=== PATIENT | male | born 1980 | race Caucasian/White ===

== ENCOUNTER 2019-03-05 22:01 | Emergency (ER) | payer BC, OTHER ==
[~2019-03-05] VITALS: Ht 182.8 cm; Wt 63.0 kg
[2019-03-05] MEDS ORDERED: LACTATED RINGERS 1,000 ML IV ONE ×2 (22:21→22:24)
--- NOTE | 2019-03-05 22:28 | ED Psychosocial ---
General Chief Complaint: Overdose Stated Complaint: POSS DRUG OD Source: patient, other (acquaintances through the latter-day) Exam Limitations: clinical condition History of Present Illness Date Seen by Provider: Mar 05, 2019 Time Seen by Provider: 22:10 Initial Comments the patient presents to the ER by private conveyance from his home where some acquaintances who through a drug addiction treatment program as well as the latter-day were called by the patient's boss because he was acting bizarrely. The patient says that sometime this morning he got a bag of meth which she typically will smoke but today he just ate and snorted and was having a bad trip from it. He was told that there might be acid in it. He said everything was doing well until after he took all of the meth he then decided to chew on the bag and suck on it. He denies swallowing it. He says since then he's been very agitated he's had people coming in and out of the house and messing with him. He denies hernández llucinating anything in the room presently. He denies any previous medical history or surgical history. He denies any trauma to his abdominal cavity. He says he just feels like his guts are boiling and bubbling but he has not had a bowel movement in over a week which is unusual because he typically has one daily. He has not eaten or drank since yesterday. He denies any fevers or ch ills, nausea or vomiting. He denies taking any medications routinely. He says he feels very thirsty. He denies alcohol but he smokes cigarettes. He denies any suicidal or homicidal ideation. Allergies and Home Medications Allergies Coded Allergies: No Known Drug Allergies (Unverified , 03/05/19) Patient Home Medication List Home Medication List Reviewed: Yes Review of Systems Constitutional: No chills, No diaphoresis EENTM: No ear discharge, No ear pain Respiratory: No cough, No short of breath Cardiovascular: No chest pain, No edema Gastrointestinal: see HPI; No abdominal pain; constipation; No diarrhea, No nausea, No vomiting Genitourinary: decreased output; No discharge, No dysuria Musculoskeletal: No back pain, No joint pain Skin: No pruritus, No rash Psychiatric/Neurological: Denies Headache, Denies Numbness Past Sbzvguf-Cpyxgx-Jyvpvp Hx Patient Social History Alcohol Use: Denies Use Recreational Drug Use: Yes Drug of Choice: Meth, Acid Smoking Status: Current Everyday Smoker Type Used: Cigarettes Physical Exam Vital Signs - First Documented 03/05/19 22:25 Temp 36.4 Pulse 122 Resp 22 B/P (MAP) 134/93 (107) Capillary Refill : Height, Weight, BMI Height: '" Weight: lbs. oz. kg; BMI Method: General Appearance: WD/WN, mild distress HEENT: PERRL/EOMI, normal ENT inspection, pharynx normal Neck: full range of motion, supple, normal inspection Respiratory: lungs clear, normal breath sounds, no respiratory distress, no accessory muscle use Cardiovascular: normal peripheral pulses, regular rate, rhythm Gastrointestinal: normal bowel sounds, non tender, soft, no organomegaly, other (negative for tenderness over McBurney's point, Rovsing sign, psoas sign or other mesenteric signs.) Extremities: normal range of motion, non-tender, normal inspection, normal capillary refill Neurologic/Psychiatric: alert, normal mood/affect, oriented x 3 Appearance/Memory: no memory impairment, disheveled Behavior/Eye Contact: cooperative, good eye contact, normal speech Thoughts/Hallucinations: no apparent hallucination; No incoherent, No paranoid Skin: normal color, warm/dry Progress/Results/Core Measures Results/Orders Lab Results Laboratory Tests Test 03/05/19 22:30 03/06/19 01:02 03/06/19 01:27 Range/Units White Blood Count 9.9 4.3-11.0 10^3/uL Red Blood Count 5.21 4.35-5.85 10^6/uL Hemoglobin 16.7 13.3-17.7 G/DL Hematocrit 49 40-54 % Mean Corpuscular Volume 94 80-99 FL Mean Corpuscular Hemoglobin 32 25-34 PG Mean Corpuscular Hemoglobin Concent 34 32-36 G/DL Red Cell Distribution Width 12.2 10.0-14.5 % Platelet Count 212 130-400 10^3/uL Mean Platelet Volume 10.2 7.4-10.4 FL Neutrophils (%) (Auto) 70 42-75 % Lymphocytes (%) (Auto) 20 12-44 % Monocytes (%) (Auto) 9 0-12 % Eosinophils (%) (Auto) 0 0-10 % Basophils (%) (Auto) 1 0-10 % Neutrophils # (Auto) 6.9 1.8-7.8 X 10^3 Lymphocytes # (Auto) 1.9 1.0-4.0 X 10^3 Monocytes # (Auto) 0.8 0.0-1.0 X 10^3 Eosinophils # (Auto) 0.0 0.0-0.3 10^3/uL Basophils # (Auto) 0.1 0.0-0.1 10^3/uL Erythrocyte Sedimentation Rate 8 0-15 MM/HR Sodium Level 144 135-145 MMOL/L Potassium Level 3.8 3.6-5.0 MMOL/L Chloride Level 103 98-107 MMOL/L Carbon Dioxide Level 24 21-32 MMOL/L Anion Gap 17 H 5-14 MMOL/L Blood Urea Nitrogen 12 7-18 MG/DL Creatinine 0.87 0.60-1.30 MG/DL Estimat Glomerular Filtration Rate > 60 BUN/Creatinine Ratio 14 Glucose Level 97 70-105 MG/DL Calcium Level 9.9 8.5-10.1 MG/DL Corrected Calcium 8.5-10.1 MG/DL Total Bilirubin 1.0 0.1-1.0 MG/DL Aspartate Amino Transf (AST/SGOT) 18 5-34 U/L Alanine Aminotransferase (ALT/SGPT) 19 0-55 U/L Alkaline Phosphatase 78 40-136 U/L Total Creatine Kinase 171 30-200 U/L Troponin I < 0.30 < 0.30 <0.30 NG/ML C-Reactive Protein 0.08 <0.50 MG/DL Total Protein 7.5 6.4-8.2 GM/DL Albumin 4.6 H 3.2-4.5 GM/DL Lipase 23 8-78 U/L Salicylates Level < 0.3 L 5.0-20.0 MG/DL Acetaminophen Level < 10 L 10-30 UG/ML Serum Alcohol < 10 <10 MG/DL Urine Color DARK YELLOW Urine Clarity CLEAR Urine pH 6.0 5-9 Urine Specific [place] >=1.030 1.016-1.022 Urine Protein NEGATIVE NEGATIVE Urine Glucose (UA) NEGATIVE NEGATIVE Urine Ketones 2+ H NEGATIVE Urine Nitrite NEGATIVE NEGATIVE Urine Bilirubin 2+ H NEGATIVE Urine Urobilinogen 4.0 < = 1.0 MG/DL Urine Leukocyte Esterase NEGATIVE NEGATIVE Urine RBC (Auto) NEGATIVE NEGATIVE Urine RBC 0-2 /HPF Urine WBC NONE /HPF Urine Squamous Epithelial Cells 0-2 /HPF Urine Crystals NONE /LPF Urine Bacteria NEGATIVE /HPF Urine Casts PRESENT /LPF Urine Hyaline Casts 0-2 H /LPF Urine Mucus LARGE H /LPF Urine Culture Indicated NO Urine Opiates Screen NEGATIVE NEGATIVE Urine Oxycodone Screen NEGATIVE NEGATIVE Urine Methadone Screen NEGATIVE NEGATIVE Urine Propoxyphene Screen NEGATIVE NEGATIVE Urine Barbiturates Screen NEGATIVE NEGATIVE Ur Tricyclic Antidepressants Screen NEGATIVE NEGATIVE Urine Phencyclidine Screen NEGATIVE NEGATIVE Urine Amphetamines Screen POSITIVE H NEGATIVE Urine Methamphetamines Screen POSITIVE H NEGATIVE Urine Benzodiazepines Screen POSITIVE H NEGATIVE Urine Cocaine Screen NEGATIVE NEGATIVE Urine Cannabinoids Screen NEGATIVE NEGATIVE My Orders Orders - CARROL GARCIA Ed Iv/Invasive Line Start (03/05/19 22:21) Lactated Ringers (Lr 1000 Ml Iv Solution (03/05/19 22:21) Ua Culture If Indicated (03/05/19 22:21) Cbc With Automated Diff (03/05/19 22:21) Comprehensive Metabolic Panel (03/05/19 22:21) Alcohol (03/05/19 22:21) Drug Screen Stat (Urine) (03/05/19 22:21) Acetaminophen (03/05/19 22:21) Salicylate (03/05/19 22:21) Ekg Tracing (03/05/19 22:21) Ed Iv/Invasive Line Start (03/05/19 22:21) Monitor-Rhythm Ecg Trace Only (03/05/19 22:21) Lipase (03/05/19 22:21) Pantoprazole Injection (Protonix Injecti (03/05/19 22:30) Lorazepam Injection (Ativan Injection) (03/05/19 22:30) Ed Iv/Invasive Line Start (03/05/19 22:24) Lactated Ringers (Lr 1000 Ml Iv Solution (03/05/19 22:24) Troponin I Fs (03/05/19 22:35) Aspirin Chewable Tablet (Baby Aspirin Ch (03/05/19 22:45) Continuous Ekg Monitoring (03/05/19 22:35) Crp Fs (03/05/19 22:41) Erythrocyte Sedimentation Rate (03/05/19 22:41) Chest 1 View Ap/Pa Only (03/05/19 22:44) Ekg Tracing (03/05/19 23:15) Creatine Kinase (03/05/19 22:30) Troponin I Fs (03/06/19 01:30) Abdomen Flat & Upright/Decub (03/05/19 23:43) Medications Given in ED Current Medications Medications Dose Ordered Sig/Mariluz Route Start Time Stop Time Status Last Admin Dose Admin Aspirin 324 mg ONCE ONCE PO 03/05/19 22:45 03/05/19 22:46 DC 03/05/19 22:46 324 MG Lactated Ringer's 1,000 ml @ 0 mls/hr Q0M ONCE IV 03/05/19 22:21 03/05/19 22:25 DC 03/05/19 22:46 999 MLS/HR Lactated Ringer's 1,000 ml @ 0 mls/hr Q0M ONCE IV 03/05/19 22:24 03/05/19 22:26 DC 03/05/19 22:48 999 MLS/HR Lorazepam 1 mg ONCE ONCE IVP 03/05/19 22:30 03/05/19 22:31 DC 03/05/19 22:46 1 MG Pantoprazole 40 mg ONCE ONCE IV 03/05/19 22:30 03/05/19 22:31 DC 03/05/19 22:46 40 MG Vital Signs/I&O 03/05/19 22:25 Temp 36.4 Pulse 122 Resp 22 B/P (MAP) 134/93 (107) Progress Progress Note #1: Time: 22:30 Progress Note Appears to be having methamphetamine intoxication. He is not endorsing any hallucinations directly. He is not the best historian but he is able to give an accounting of what happened although he can't pinpoint what time the drugs were taken. Plan to do a psychiatric workup to include toxicology screening and give him 2 L of fluid check a CPK for rhabdomyolysis. We'll get an EKG and chest x- ray. If his labs are not bad then we'll get an acute abdominal series. Ativan 1 mg for his mild agitation. Nothing by mouth. Progress Note #2: Time: 02:01 Progress Note Patient is up, walking, talking, not hallucinating non-delirious. CK and delta troponin are normal. We'll let him follow-up with primary care. Initial ECG Impression Date: Mar 05, 2019 Initial ECG Impression Time: 22:28 Initial ECG Rate: 104 Initial ECG Rhythm: S.Tach Initial ECG Intervals: Normal Initial ECG Impression: Normal, Nonspecific Changes Initial ECG Comparisson: No Previous ECG Available Comment No clinically relevant ST elevation or depression. General irritation. Normal sinus tachycardia. EKG : EKG Time: 23:26 Rate: 108 Rhythm: S.Tach Intervals: Normal, QT (469) ECG Comparisson: Unchanged ECG Impression: Normal Comment No clinically relevant ST elevation or depression. Normal sinus tachycardia rhythm. Diagnostic Imaging Diagonstic Imaging: Xray Plain Films/CT/US/NM/MRI: chest (1v) Comments No acute cardiopulmonary process noted. No pneumothorax, or acute osseous abnormality. Normal size heart shadow. Unremarkable bowel gas pattern as seen on one view chest x-ray. Reviewed: Reviewed by Me Diagonstic Imaging: Xray Plain Films/CT/US/NM/MRI: abdomen Comments No acute abdominal findings. No evidence of obstruction or ileus. Reviewed: Reviewed by Me Consults : Consulting Physician: Benjamín PUGH MD Consults Notes Reviewed the history examination and plan with Dr. Pugh and he agrees this does not represent acute [place]. We should think about CRP/ESR and if an elevated troponin is seen myocarditis maybe this case. He claims not to inject only to snort and ingest. 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 Departure Impression Primary Impression: Methamphetamine intoxication Disposition: 01 HOME, SELF-CARE Condition: Improved Departure-Patient Inst. Decision time for Depature: 02:02 Patient Instructions: ALCOHOL AND SUBSTANCE ABUSE Add. Discharge Instructions: I would encourage you to look into a drug addiction treatment Center. [facility] has an inpatient Center and [facility] as an outpatient Center they are more than willing to work with you If you want to approach them. Drink plenty of fluids and get some sleep tonight. All discharge instructions reviewed with patient and/or family. Voiced understanding. CARROL GARCIA Mar 05, 2019 22:28
[2019-03-05] MEDS ORDERED: PANTOPRAZOLE 40 MG (PROTONIX) VIAL IV ONE (22:30)
[2019-03-05] MEDS ORDERED: LORazepam INJ 2 MG/ML (ATIVAN) VIAL IVP ONE (22:30)
[2019-03-05 22:42] LABS: WHITE BLOOD COUNT 9.9 10^3/uL (4.3-11.0)
[2019-03-05 22:43] LABS: BASOPHILS # (AUTO) 0.1 10^3/uL (0.0-0.1); BASOPHILS % (AUTO) 1 % (0-10); EOSINOPHILS % (AUTO) 0 % (0-10); HEMATOCRIT 49 % (40-54); HEMOGLOBIN 16.7 G/DL (13.3-17.7); LYMPHOCYTES # (AUTO) 1.9 X 10^3 (1.0-4.0); LYMPHOCYTES % (AUTO) 20 % (12-44); MEAN CORPUSCULAR HEMOGLOBIN 32 PG (25-34); MEAN CORPUSCULAR HGB CONC 34 G/DL (32-36); MEAN CORPUSCULAR VOLUME 94 FL (80-99); MEAN PLATELET VOLUME 10.2 FL (7.4-10.4); MONOCYTES # (AUTO) 0.8 X 10^3 (0.0-1.0); MONOCYTES % (AUTO) 9 % (0-12); NEUTROPHILS # (AUTO) 6.9 X 10^3 (1.8-7.8); NEUTROPHILS % (AUTO) 70 % (42-75); PLATELET COUNT 212 10^3/uL (130-400); RED CELL DISTRIBUTION WIDTH 12.2 % (10.0-14.5)
[2019-03-05] MEDS ORDERED: ASPIRIN 81 MG CHEW (CHILDREN'S ASA) PO ONE (22:45)
[2019-03-05 23:05] LABS: ALANINE AMINOTRANSFERASE 19 U/L (0-55); ALBUMIN 4.6 GM/DL (3.2-4.5); ALKALINE PHOSPHATASE 78 U/L (40-136); BUN/CREATININE RATIO 14; CALCIUM 9.9 MG/DL (8.5-10.1); CARBON DIOXIDE 24 MMOL/L (21-32); CHLORIDE 103 MMOL/L (98-107); CREATININE SERUM 0.87 MG/DL (0.60-1.30); GFR ESTIMATED > 60; GLUCOSE 97 MG/DL (70-105); LIPASE 23 U/L (8-78); POTASSIUM 3.8 MMOL/L (3.6-5.0); SODIUM 144 MMOL/L (135-145); TOTAL PROTEIN 7.5 GM/DL (6.4-8.2)
[2019-03-05 23:06] LABS: ACETAMINOPHEN < 10 UG/ML (10-30); SALICYLATE < 0.3 MG/DL (5.0-20.0)
[2019-03-06 01:16] LABS: CLARITY,URINE CLEAR; COLOR,URINE DARK YELLOW; GLUCOSE, URINE (UA) NEGATIVE (NEGATIVE); KETONES,URINE 2+ (NEGATIVE); NITRITE,URINE NEGATIVE (NEGATIVE); PROTEIN,URINE NEGATIVE (NEGATIVE)
[2019-03-06 01:17] LABS: BACTERIA,URINE NEGATIVE /HPF; BILIRUBIN,URINE 2+ (NEGATIVE); HYALINE CASTS, URINE 0-2 /LPF; LEUKOCYTE ESTERASE ,URINE NEGATIVE (NEGATIVE); RBC,URINE 0-2 /HPF; SQUAMOUS EPITHELIAL CELL,UR 0-2 /HPF
[2019-03-06 01:20] LABS: AMPHETAMINE SCREEN, URINE POSITIVE (NEGATIVE); BARBITURATE SCREEN URINE NEGATIVE (NEGATIVE); BENZODIAZEPINES SCREEN URINE POSITIVE (NEGATIVE); CANNABINOID SCREEN, URINE NEGATIVE (NEGATIVE); COCAINE SCREEN URINE NEGATIVE (NEGATIVE); METHADONE STAT NEGATIVE (NEGATIVE); METHAMPHETAMINE SCREEN URINE S POSITIVE (NEGATIVE); OPIATE SCREEN URINE NEGATIVE (NEGATIVE); OXYCODONE STAT NEGATIVE (NEGATIVE); PROPOXYPHENE STAT NEGATIVE (NEGATIVE); TRICYCLIC ANTIDEPRESSANTS SCRE NEGATIVE (NEGATIVE)
[2019-03-06 02:07] VITALS: BP 135/73
--- NOTE | 2019-03-06 07:11 | Diagnostic Imaging Report ---
INDICATION: Drug overdose KUB 11:50 AM Lung bases are clear. Bowel gas pattern is normal. There are no pathologic masses or calcifications. There are no radiopaque foreign objects seen in the abdomen. IMPRESSION: No acute abnormalities in the abdomen. Dictated by: Dictated on workstation # [id number]
--- NOTE | 2019-03-06 07:19 | Diagnostic Imaging Report ---
INDICATION: Drug overdose Portable chest 10:45 PM Heart size and pulmonary vascularity are normal. Lungs are clear. There are no effusions or pneumothoraces. IMPRESSION: Negative chest Dictated by: Dictated on workstation # [id number]
== END 2019-03-06 02:08 | disposition home or self-care (01) ==
LOC: ER FS 22:03
DX: F15.129 Other stimulant abuse with intoxication, unspecified (principal); F17.210 Nicotine dependence, cigarettes, uncomplicated
CPT/HCPCS: 36415; 71045; 74019; 80053; 80306; 80320; 80329; 81000; 82550; 83690; 84484; 85025; 85652; 86141; 93005; 93041

== ENCOUNTER 2020-05-30 08:07 | Day surgery (SDC) | payer BC ==
[~2020-05-30] VITALS: Ht 170 cm; Wt 80.0 kg
[2020-05-30] VITALS (11 sets, daily range): BP systolic 90–118; BP diastolic 47–84
[2020-05-30] MEDS ORDERED: NS IV 1000 ML 1,000 ML IV STA (08:12)
[2020-05-30] MEDS ORDERED: KETOROLAC 30 MG/ML VIAL IVP STA (08:23)
--- NOTE | 2020-05-30 08:36 | ED Abdominal Pain ---
General Chief Complaint: Abdominal/GI Problems Stated Complaint: ABD PAIN Source of Information: Patient Exam Limitations: No Limitations History of Present Illness Date Seen by Provider: May 30, 2020 Time Seen by Provider: 08:11 Initial Comments Here with report of right lower quadrant abdominal pain that started in the epigastrium and moved down over the last couple of days. Seen in clinic and sent here for further evaluation. Apparently he had UA that did show some blood and there was concerns about kidney stone. Patient states the pain is worse today. He has been drinking increased amounts of water. Does report nausea and vomiting. Denies fever chills. States he has been eating okay. 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 Denies dysuria or diarrhea. Timing/Duration: 2-3 Days Severity/Quality: Moderate, Aching Location: RLQ, Epigastric Radiation: RLQ Activities at Onset: None Modifying Factors: Worsens With Movement; Improves With Resting Associated Symptoms: No Fever/Chills; Nausea/Vomiting; No Shortness of Air, No Weakness Allergies and Home Medications Allergies Coded Allergies: No Known Drug Allergies (Unverified , 03/05/19) Patient Home Medication List Home Medication List Reviewed: Yes Review of Systems Review of Systems Constitutional: see HPI; No chills, No fever EENTM: No Symptoms Reported Respiratory: Denies Cough, Denies Shortness of Air Cardiovascular: No Symptoms Reported Gastrointestinal: See HPI Genitourinary: Denies Discharge; Hematuria Musculoskeletal: no symptoms reported Skin: no symptoms reported All Other Systems Reviewed Negative Unless Noted: Yes Past Pjhzfve-Myskdy-Cdiaif Hx Past Med/Social Hx: Reviewed Nursing Past Med/Soc Hx Patient Social History Alcohol Use: Denies Use Drug of Choice: Meth, Acid Type Used: Cigarettes 2nd Hand Smoke Exposure: Yes Recent Hopitalizations: No Seasonal Allergies Seasonal Allergies: No Past Medical History Surgeries: No Respiratory: No Cardiac: No Neurological: No Genitourinary: No Gastrointestinal: No Musculoskeletal: No Endocrine: No HEENT: No Cancer: No Psychosocial: No Integumentary: No Blood Disorders: No Family Medical History Reviewed Nursing Family Hx No Pertinent Family Hx Physical Exam Vital Signs Vital Signs - First Documented 05/30/20 08:07 Temp 36.9 Pulse 98 Resp 18 B/P (MAP) 139/87 (104) O2 Delivery Room Air Capillary Refill : Height/Weight/BMI Height: '" Weight: lbs. oz. kg; 18.00 BMI Method: General Appearance: WD/WN, no apparent distress HEENT: PERRL/EOMI, pharynx normal Neck: full range of motion, supple Respiratory: lungs clear, normal breath sounds Cardiovascular: regular rate, rhythm, no murmur Gastrointestinal: soft, guarding; No rebound; tenderness (Right lower quadrant) Extremities: non-tender, normal inspection Back: normal inspection, no CVA tenderness, no vertebral tenderness Neurologic/Psychiatric: alert, oriented x 3 Skin: normal color, warm/dry Progress/Results/Core Measures Results/Orders Lab Results Laboratory Tests Test 05/30/20 08:11 05/30/20 08:20 Range/Units Urine Color NABOR H Urine Clarity CLEAR Urine pH 5.5 5-9 Urine Specific [place] >=1.030 1.016-1.022 Urine Protein NEGATIVE NEGATIVE Urine Glucose (UA) NEGATIVE NEGATIVE Urine Ketones TRACE H NEGATIVE Urine Nitrite NEGATIVE NEGATIVE Urine Bilirubin 1+ H NEGATIVE Urine Urobilinogen 0.2 < = 1.0 MG/DL Urine Leukocyte Esterase TRACE H NEGATIVE Urine RBC (Auto) NEGATIVE NEGATIVE Urine RBC 2-5 H /HPF Urine WBC 2-5 /HPF Urine Squamous Epithelial Cells NONE /HPF Urine Crystals NONE /LPF Urine Bacteria NEGATIVE /HPF Urine Casts NONE /LPF Urine Mucus LARGE H /LPF Urine Culture Indicated NO White Blood Count 17.2 H 4.3-11.0 10^3/uL Red Blood Count 5.44 4.35-5.85 10^6/uL Hemoglobin 17.6 13.3-17.7 G/DL Hematocrit 51 40-54 % Mean Corpuscular Volume 93 80-99 FL Mean Corpuscular Hemoglobin 32 25-34 PG Mean Corpuscular Hemoglobin Concent 35 32-36 G/DL Red Cell Distribution Width 12.8 10.0-14.5 % Platelet Count 204 130-400 10^3/uL Mean Platelet Volume 10.2 7.4-10.4 FL Immature Granulocyte % (Auto) 0 % Neutrophils (%) (Auto) 74 42-75 % Lymphocytes (%) (Auto) 15 12-44 % Monocytes (%) (Auto) 10 0-12 % Eosinophils (%) (Auto) 1 0-10 % Basophils (%) (Auto) 0 0-10 % Neutrophils # (Auto) 12.8 H 1.8-7.8 X 10^3 Lymphocytes # (Auto) 2.6 1.0-4.0 X 10^3 Monocytes # (Auto) 1.7 H 0.0-1.0 X 10^3 Eosinophils # (Auto) 0.1 0.0-0.3 10^3/uL Basophils # (Auto) 0.1 0.0-0.1 10^3/uL Immature Granulocyte # (Auto) 0.1 0.0-0.1 10^3/uL Neutrophils % (Manual) 68 % Lymphocytes % (Manual) 13 % Monocytes % (Manual) 9 % Band Neutrophils 9 % Atypical Lymphocytes 1 % Blood Morphology Comment NORMAL Sodium Level 138 135-145 MMOL/L Potassium Level 4.3 3.6-5.0 MMOL/L Chloride Level 102 98-107 MMOL/L Carbon Dioxide Level 25 21-32 MMOL/L Anion Gap 11 5-14 MMOL/L Blood Urea Nitrogen 9 7-18 MG/DL Creatinine 0.84 0.60-1.30 MG/DL Estimat Glomerular Filtration Rate > 60 BUN/Creatinine Ratio 11 Glucose Level 100 70-105 MG/DL Calcium Level 9.4 8.5-10.1 MG/DL Corrected Calcium 9.0 8.5-10.1 MG/DL Total Bilirubin 0.7 0.1-1.0 MG/DL Aspartate Amino Transf (AST/SGOT) 18 5-34 U/L Alanine Aminotransferase (ALT/SGPT) 25 0-55 U/L Alkaline Phosphatase 90 40-136 U/L C-Reactive Protein 7.33 H <0.50 MG/DL Total Protein 7.4 6.4-8.2 GM/DL Albumin 4.5 3.2-4.5 GM/DL My Orders Orders - EMILY EMANUEL MD Cbc With Automated Diff (05/30/20 08:12) Comprehensive Metabolic Panel (05/30/20 08:12) Ua Culture If Indicated (05/30/20 08:12) Ns Iv 1000 Ml (Sodium Chloride 0.9%) (05/30/20 08:12) Ed Iv/Invasive Line Start (05/30/20 08:12) Ketorolac Injection (Toradol Injection) (05/30/20 08:23) Crp Fs (05/30/20 08:20) Manual Differential (05/30/20 08:20) Ct Abd/Pelv W (Appendicitis) (05/30/20 08:48) Iohexol Injection (Omnipaque 350 Mg/Ml 1 (05/30/20 09:15) Received Contrast (Hold Metformin- Contr (05/30/20 09:15) Sodium Chloride Flush (Catheter Flush Sy (05/30/20 09:15) Ns (Ivpb) (Sodium Chloride 0.9% Ivpb Bag (05/30/20 09:15) Medications Given in ED Current Medications Medications Dose Ordered Sig/Mariluz Route Start Time Stop Time Status Last Admin Dose Admin Iohexol 100 ml ONCE ONCE IV 05/30/20 09:15 05/30/20 09:16 DC 05/30/20 09:21 100 ML Sodium Chloride 10 ml NEEDED PRN IV 05/30/20 09:15 05/30/20 09:21 10 ML Sodium Chloride 100 ml ONCE ONCE IV 05/30/20 09:15 05/30/20 09:16 DC 05/30/20 09:21 100 ML Vital Signs/I&O 05/30/20 08:07 Temp 36.9 Pulse 98 Resp 18 B/P (MAP) 139/87 (104) O2 Delivery Room Air Progress Progress Note : Progress Note Seen and evaluated. IV, labs and UA ordered. Normal saline 1 L bolus. Toradol 30 mg IV[address] Monitor patient. CT abdomen pelvis ordered with contrast to rule out appendicitis after white count noted to be elevated and no blood in the urine. 1000: Have discussed the case with Dr. Callejas. Patient would like to go to [facility] via POV. He has not had narcotics and did drive here. He believes that he can do this safely and I agree. Dr. Callejas is fine with that plan I would like him to go directly to the outpatient surgery area for appendectomy today. If it is not perforated, the patient will likely go home today. I did discuss all of this with the patient and he agrees. We did discuss his IV and it is kind of bothering him so we will go ahead and take it out to have them reinitiate that at the outpatient surgery center. I did instruct the patient to go directly there and to not eat or drink anything. Patient verbalized understanding. Patient agrees with plan. Diagnostic Imaging Diagonstic Imaging: CT Plain Films/CT/US/NM/MRI: abdomen, pelvis Comments [facility], [place] NAME: JOLYNN CAMPBELL REC#: [id number] PT STATUS: REG ER : 1980 PHYSICIAN: EMILY EMANUEL MD ADMIT DATE: 05/30/20/ER FS Draft Date of Exam:05/30/20 CT ABD/PELV W (APPENDICITIS) EXAMINATION: CT ABD/PELV W (APPENDICITIS). TECHNIQUE: Multiple contiguous axial images were obtained through the abdomen and pelvis after administration of intravenous contrast. All CT scans use one or more of the following dose optimizing techniques: automated exposure control, MA and/or KvP adjustment based on a patient size and exam type, or iterative reconstruction. INDICATION: Right lower quadrant pain with nausea and vomiting. COMPARISON: None available. FINDINGS: Lower chest: The lung bases are clear. No pericardial or pleural effusion. Peritoneum: No free intraperitoneal air. Liver and biliary system: The liver is normal. The gallbladder is normal. No biliary duct dilation. Spleen and Pancreas: Spleen is normal. The pancreas enhances normally without mass lesion or peripancreatic inflammatory changes. Adrenals: Normal. tract: The kidneys enhance normally without suspicious mass or obstruction. Urinary bladder is distended without wall thickening. Prostate is normal in size. Seminal vesicles are normal in appearance. GI tract: Stomach is decompressed. No bowel obstruction. No pericolonic inflammatory changes. The appendix is dilated measuring 12 mm. There is a large amount of surrounding stranding within the right lower quadrant fat. No loculated fluid collection. Vasculature and Lymph nodes: Normal caliber aorta. No abdominal or pelvic lymphadenopathy. Musculoskeletal: No concerning osseous lesion. IMPRESSION: Acute appendicitis with a moderate amount of stranding and fluid in the right lower quadrant raising the possibility of microperforation; however, there is no free air, abscess, or bowel obstruction. Dictated on workstation # [id number] Dict: 05/30/2028 Trans: 05/30/20 [id number] Interpreted by: DARREL FRANKS MD Electronically signed by: Departure Impression Primary Impression: Appendicitis Qualified Codes: K35.30 - Acute appendicitis with localized peritonitis, without perforation or gangrene Disposition: 30 STILL A PATIENT Condition: Stable Admissions Decision to Admit Reason: Admit from ER (General) Decision to Admit/Date: May 30, 2020 Time/Decision to Admit Time: 10:00 Departure-Patient Inst. Decision time for Depature: 10:00 Referrals: SURJIT ESPINOZA APRN (PCP) Primary Care Physician [facility] (Family) Primary Care Physician Patient Instructions: Appendicitis, Adult (DC) Add. Discharge Instructions: All discharge instructions reviewed with patient and/or family. Voiced understanding. Go directly to the outpatient surgery center at [facility] in [place], [place]. Do not eat or drink anything. Do not go anywhere else. EMILY EMANUEL MD May 30, 2020 08:36
[2020-05-30 08:43] LABS: BASOPHILS % (AUTO) 0 % (0-10); EOSINOPHILS # (AUTO) 0.1 10^3/uL (0.0-0.3); EOSINOPHILS % (AUTO) 1 % (0-10); HEMATOCRIT 51 % (40-54); HEMOGLOBIN 17.6 G/DL (13.3-17.7); LYMPHOCYTES # (AUTO) 2.6 X 10^3 (1.0-4.0); LYMPHOCYTES % (AUTO) 15 % (12-44); MEAN CORPUSCULAR HEMOGLOBIN 32 PG (25-34); MEAN CORPUSCULAR HGB CONC 35 G/DL (32-36); MEAN CORPUSCULAR VOLUME 93 FL (80-99); MEAN PLATELET VOLUME 10.2 FL (7.4-10.4); MONOCYTES # (AUTO) 1.7 X 10^3 (0.0-1.0); MONOCYTES % (AUTO) 10 % (0-12); NEUTROPHILS # (AUTO) 12.8 X 10^3 (1.8-7.8); NEUTROPHILS % (AUTO) 74 % (42-75); PLATELET COUNT 204 10^3/uL (130-400); WHITE BLOOD COUNT 17.2 10^3/uL (4.3-11.0)
[2020-05-30 08:44] LABS: ATYPICAL LYMPHOCYTES 1 %; BAND NEUTROPHILS 9 %; BASOPHILS # (AUTO) 0.1 10^3/uL (0.0-0.1); LYMPHOCYTES % (MANUAL) 13 %; MONOCYTES % (MANUAL) 9 %; NEUTROPHILS % (MANUAL) 68 %
[2020-05-30 08:45] LABS: RBC MORPH NORMAL
[2020-05-30 08:46] LABS: BILIRUBIN,URINE 1+ (NEGATIVE); CLARITY,URINE CLEAR; COLOR,URINE AMBER; GLUCOSE, URINE (UA) NEGATIVE (NEGATIVE); KETONES,URINE TRACE (NEGATIVE); LEUKOCYTE ESTERASE ,URINE TRACE (NEGATIVE); NITRITE,URINE NEGATIVE (NEGATIVE); PH,URINE 5.5 (5-9); PROTEIN,URINE NEGATIVE (NEGATIVE)
[2020-05-30 08:47] LABS: BACTERIA,URINE NEGATIVE /HPF
[2020-05-30 08:58] LABS: BUN/CREATININE RATIO 11; CARBON DIOXIDE 25 MMOL/L (21-32); CHLORIDE 102 MMOL/L (98-107); CREATININE SERUM 0.84 MG/DL (0.60-1.30); GFR ESTIMATED > 60; GLUCOSE 100 MG/DL (70-105); POTASSIUM 4.3 MMOL/L (3.6-5.0); SODIUM 138 MMOL/L (135-145)
[2020-05-30 08:59] LABS: ALANINE AMINOTRANSFERASE 25 U/L (0-55); ALBUMIN 4.5 GM/DL (3.2-4.5); ALKALINE PHOSPHATASE 90 U/L (40-136); BILIRUBIN,TOTAL 0.7 MG/DL (0.1-1.0); CALCIUM 9.4 MG/DL (8.5-10.1); TOTAL PROTEIN 7.4 GM/DL (6.4-8.2)
[2020-05-30] MEDS ORDERED: IOHEXOL 350 MG/ML 100 ML (OMNIPAQUE 350) VIAL IV ONE (09:15)
[2020-05-30] MEDS ORDERED: CATHETER FLUSH 10 ML SYR IV PRN (09:15)
[2020-05-30] MEDS ORDERED: HOLD METFORMIN - RECEIVED CONTRAST 20 ML VIAL IV SCH (09:15)
[2020-05-30] MEDS ORDERED: NS 100 ML (IVPB) BAG IV ONE (09:15)
--- NOTE | 2020-05-30 09:34 | Diagnostic Imaging Report ---
EXAMINATION: CT ABD/PELV W (APPENDICITIS). TECHNIQUE: Multiple contiguous axial images were obtained through the abdomen and pelvis after administration of intravenous contrast. All CT scans use one or more of the following dose optimizing techniques: automated exposure control, MA and/or KvP adjustment based on a patient size and exam type, or iterative reconstruction. INDICATION: Right lower quadrant pain with nausea and vomiting. COMPARISON: None available. FINDINGS: Lower chest: The lung bases are clear. No pericardial or pleural effusion. Peritoneum: No free intraperitoneal air. Liver and biliary system: The liver is normal. The gallbladder is normal. No biliary duct dilation. Spleen and Pancreas: Spleen is normal. The pancreas enhances normally without mass lesion or peripancreatic inflammatory changes. Adrenals: Normal. tract: The kidneys enhance normally without suspicious mass or obstruction. Urinary bladder is distended without wall thickening. Prostate is normal in size. Seminal vesicles are normal in appearance. GI tract: Stomach is decompressed. No bowel obstruction. No pericolonic inflammatory changes. The appendix is dilated measuring 12 mm. There is a large amount of surrounding stranding within the right lower quadrant fat. No loculated fluid collection. Vasculature and Lymph nodes: Normal caliber aorta. No abdominal or pelvic lymphadenopathy. Musculoskeletal: No concerning osseous lesion. IMPRESSION: Acute appendicitis with a moderate amount of stranding and fluid in the right lower quadrant raising the possibility of microperforation; however, there is no free air, abscess, or bowel obstruction. Dictated by: Dictated on workstation # [id number]
[2020-05-30] MEDS ORDERED: LIDOCAINE PF 2% 5 ML (XYLOCAINE) VIAL ONE (11:23)
[2020-05-30] MEDS ORDERED: fentaNYL INJ 100 MCG/2 ML AMP ONE (11:23)
[2020-05-30] MEDS ORDERED: GLYCOPYRROLATE 0.2 MG/ML (ROBINUL) 2 ML VIAL ONE (11:23)
[2020-05-30] MEDS ORDERED: SEVOFLURANE (ULTANE) 15 ML INHAL SOLN ONE (11:23)
[2020-05-30] MEDS ORDERED: ROCURONIUM 10 MG/ML 5 ML SYRINGE IV ONE (11:23)
[2020-05-30] MEDS ORDERED: NEOSTIGMINE 3 MG/3 ML VIAL ONE (11:23)
[2020-05-30] MEDS ORDERED: proPOfol 200 MG/20 ML (DIPRIVAN) VIAL IV ONE (11:23)
[2020-05-30] MEDS ORDERED: ONDANSETRON 4 MG/2 ML (SDV) Z0FRAN ONE (11:23)
[2020-05-30] MEDS ORDERED: MIDAZOLAM 2 MG/2 ML (VERSED) VIAL ONE (11:24)
[2020-05-30] MEDS ORDERED: LACTATED RINGERS 1,000 ML IV PRN (11:30)
[2020-05-30] MEDS ORDERED: LIDOCAINE/EPI 1%-1:100,000 (XYLOCAINE) 20ML ONE (11:57)
--- NOTE | 2020-05-30 12:19 | Consultation - Surgery ---
History of Present Illness History of Present Illness Patient Consulted On(rosa/time) 05/30/20 12:13 Time Seen by Provider: 12:04 History of Present Illness Surgery asked to consult regarding RLQ pain, appendicitis. HPI per ED: Here with report of right lower quadrant abdominal pain that started in the epigastrium and moved down over the last couple of days. Seen in clinic and sent here for further evaluation. Apparently he had UA that did show some blood and there was concerns about kidney stone. Patient states the pain is worse today. He has been drinking increased amounts of water. Does report nausea and vomiting. Denies fever chills. States he has been eating okay. 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 Denies dysuria or diarrhea. Timing/Duration: 2-3 Days Severity/Quality: Moderate, Aching Location: RLQ, Epigastric Radiation: RLQ Activities at Onset: None Modifying Factors: Worsens With Movement; Improves With Resting Associated Symptoms: No Fever/Chills; Nausea/Vomiting; No Shortness of Air, No Weakness When I spoke to pt he states he thinks he had something similar to this last year. States the pain started Saturday; he thought it was just fullness after dinner. Pain continued all day Saturday and rated 10 out of 10, associated with nausea and vomiting. Today pain is 8 out of 10, constant stabbing pain. Started "just under my ribs and upper left side, now its all on the right". Allergies and Home Medications Allergies Coded Allergies: No Known Drug Allergies (Unverified , 03/05/19) Patient Home Medication List Home Medication List Reviewed: Yes Past Pxwkjdo-Rbhmzq-Wnwqbl Hx Patient Social History Drug of Choice: Meth, Acid Smoking Status: Current Everyday Smoker Type Used: Cigarettes 2nd Hand Smoke Exposure: No Recent Hopitalizations: No Substance type: Methamphetamine Seasonal Allergies Seasonal Allergies: No Surgeries History of Surgeries: No Respiratory History of Respiratory Disorde: No Cardiovascular History of Cardiac Disorders: No Neurological History of Neurological Disord: No Genitourinary History of Genitourinary Disor: No Gastrointestinal History of Gastrointestinal Di: No Musculoskeletal History of Musculoskeletal Dis: No Endocrine History of Endocrine Disorders: No HEENT History of HEENT Disorders: No Cancer History of Cancer: No Psychosocial History of Psychiatric Problem: No Integumentary History of Skin or Integumenta: No Blood Transfusions History of Blood Disorders: No Family Medical History Significant Family History: Diabetes (Mother) Review of Systems-General Constitutional: chills, fever EENTM: No blurred vision, No double vision, No mouth pain, No epistaxis, No throat swelling Respiratory: No cough, No dyspnea on exertion, No hemoptysis Cardiovascular: No chest pain, No edema, No palpitations Gastrointestinal: abdominal pain; No jaundice; nausea, vomiting Genitourinary: No dysuria, No frequency, No hematuria Musculoskeletal: No joint pain, No joint swelling, No muscle pain, No muscle stiffness Skin: No change in color, No change in hair/nails Psychiatric/Neurological: Denies Anxiety, Denies Depressed, Denies Seizure, Denies Tremors Other Pt denies any hx of abnormal bleeding or bruising Physical Exam-General Problems Physical Exam Vital Signs Vital Signs - First Documented 05/30/20 05/30/20 08:07 10:05 Temp 36.9 Pulse 98 Resp 18 B/P (MAP) 139/87 (104) Pulse Ox 97 O2 Delivery Room Air Capillary Refill : Less Than 3 Seconds General Appearance: WD/WN, mild distress Eyes: Bilateral Eye PERRL, Bilateral Eye EOMI HEENT: pharynx normal; No scleral icterus (R), No scleral icterus (L) Neck: full range of motion, supple Respiratory: chest non-tender, lungs clear, normal breath sounds, no respiratory distress, no accessory muscle use Cardiovascular: regular rate, rhythm, no murmur Gastrointestinal: soft, no organomegaly, guarding (right side, mostly voluntary), rebound, tenderness Rectal: deferred Back: no CVA tenderness, no vertebral tenderness Extremities: non-tender, normal inspection, no pedal edema, no calf tenderness 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, no motor/sensory deficits, alert, normal mood/affect, oriented x 3 Skin: normal color, warm/dry Lymphatic: no adenopathy (neck, axilla or groin) Data Review Labs Laboratory Tests 05/30/20 08:11: Urine Color AMBERH, Urine Clarity CLEAR, Urine pH 5.5, Urine Specific Sabin >=1.030, Urine Protein NEGATIVE, Urine Glucose (UA) NEGATIVE, Urine Ketones TRACEH, Urine Nitrite NEGATIVE, Urine Bilirubin 1+H, Urine Urobilinogen 0.2, Urine Leukocyte Esterase TRACEH, Urine RBC (Auto) NEGATIVE, Urine RBC 2-5H, Urine WBC 2-5, Urine Squamous Epithelial Cells NONE, Urine Crystals NONE, Urine Bacteria NEGATIVE, Urine Casts NONE, Urine Mucus LARGEH, Urine Culture Indicated NO 05/30/20 08:20: White Blood Count 17.2H, Red Blood Count 5.44, Hemoglobin 17.6, Hematocrit 51, Mean Corpuscular Volume 93, Mean Corpuscular Hemoglobin 32, Mean Corpuscular Hemoglobin Concent 35, Red Cell Distribution Width 12.8, Platelet Count 204, Mean Platelet Volume 10.2, Immature Granulocyte % (Auto) 0, Neutrophils (%) (Auto) 74, Lymphocytes (%) (Auto) 15, Monocytes (%) (Auto) 10, Eosinophils (%) (Auto) 1, Basophils (%) (Auto) 0, Neutrophils # (Auto) 12.8H, Lymphocytes # (Auto) 2.6, Monocytes # (Auto) 1.7H, Eosinophils # (Auto) 0.1, Basophils # (Auto) 0.1, Immature Granulocyte # (Auto) 0.1, Neutrophils % (Manual) 68, Lymphocytes % (Manual) 13, Monocytes % (Manual) 9, Band Neutrophils 9, Atypical Lymphocytes 1, Blood Morphology Comment NORMAL, Sodium Level 138, Potassium Level 4.3, Chloride Level 102, Carbon Dioxide Level 25, Anion Gap 11, Blood Urea Nitrogen 9, Creatinine 0.84, Estimat Glomerular Filtration Rate > 60, BUN/Creatinine Ratio 11, Glucose Level 100, Calcium Level 9.4, Corrected Calcium 9.0, Total Bilirubin 0.7, Aspartate Amino Transf (AST/SGOT) 18, Alanine Aminot ransferase (ALT/SGPT) 25, Alkaline Phosphatase 90, C-Reactive Protein 7.33H, Total Protein 7.4, Albumin 4.5 Radiology Date of Exam:05/30/20 CT ABD/PELV W (APPENDICITIS) EXAMINATION: CT ABD/PELV W (APPENDICITIS). TECHNIQUE: Multiple contiguous axial images were obtained through the abdomen and pelvis after administration of intravenous contrast. All CT scans use one or more of the following dose optimizing techniques: automated exposure control, MA and/or KvP adjustment based on a patient size and exam type, or iterative reconstruction. INDICATION: Right lower quadrant pain with nausea and vomiting. COMPARISON: None available. FINDINGS: Lower chest: The lung bases are clear. No pericardial or pleural effusion. Peritoneum: No free intraperitoneal air. Liver and biliary system: The liver is normal. The gallbladder is normal. No biliary duct dilation. Spleen and Pancreas: Spleen is normal. The pancreas enhances normally without mass lesion or peripancreatic inflammatory changes. Adrenals: Normal. tract: The kidneys enhance normally without suspicious mass or obstruction. Urinary bladder is distended without wall thickening. Prostate is normal in size. Seminal vesicles are normal in appearance. GI tract: Stomach is decompressed. No bowel obstruction. No pericolonic inflammatory changes. The appendix is dilated measuring 12 mm. There is a large amount of surrounding stranding within the right lower quadrant fat. No loculated fluid collection. Vasculature and Lymph nodes: Normal caliber aorta. No abdominal or pelvic lymphadenopathy. Musculoskeletal: No concerning osseous lesion. IMPRESSION: Acute appendicitis with a moderate amount of stranding and fluid in the right lower quadrant raising the possibility of microperforation; however, there is no free air, abscess, or bowel obstruction. Dictated on workstation # [id number] Dict: 05/30/20 0928 Trans: 05/30/20 0934 [id number] Interpreted by: DARREL FRANKS MD Assessment/Plan Assessment/Plan Assessment/Plan Acute Appendicitis I reviewed the CT myself and agree with the Radiology diagnosis of acute appendicitis; there is a lot of inflammatory reaction in the right abdomen. It does not appear to be perforated, but could look different when we get into the abdomen. Pt is getting IV started and will get IV fluids, IV ABX, pain control, anti-emetics as needed. I went over the procedure with him (Laparoscopic Appendectomy possible open); risks and complications not limited to pain, bleeding, infection, scar, damage to bowel and need for futher procedure. We will get consent and all questions answered to his satisfaction. If surgery goes well and it does not look to bad on the inside, he may get to go home today. MARÍA ELENA HERNANDEZ DO May 30, 2020 12:19
[2020-05-30] MEDS ORDERED: PIPERACILLIN/TAZO 4.5 GM/NS 100 ML IV ONE ×2 (12:30)
[2020-05-30] MEDS ORDERED: SUCCINYLCHOLINE INJ 100 MG/5 ML SYR/VIAL ONE (13:03)
--- NOTE | 2020-05-30 13:15 | Progress Note-Post Operative ---
Post-Operative Progess Note Surgeon (s)/Blade Operator (s) Surgeon MARÍA ELENA HERNANDEZ DO Blade Operator: PARKER Mariee Pre-Operative Diagnosis Acute appendicitis Post-Operative Diagnosis same Procedure & Operative Findings Date of Procedure 05/30/20 Procedure Performed/Findings PROCEDURE: Laparoscopic appendectomy. COMPLICATIONS: None. INDICATIONS: The patient is a 39 year old male who has been having right lower quadrant abdominal pain. Patient's exam consistent with appendicitis. I discussed risk and benefits of laparoscopic appendectomy and all indicated procedures with the possibility being a normal appendix. The patient understands the risks and benefits and wishes to proceed. Consent was signed on the chart. DESCRIPTION OF PROCEDURE: The patient was taken to the operating suite, prepped and draped in a sterile fashion. Timeout was performed. Local anesthetic was infiltrated just above the umbilicus and 11-blade scalpel was used to make a skin incision. Cautery was used to dissect down to the fascia and scored. Kochers were used to grasp and elevate it and the abdomen was then entered. A 0 Vicryl was placed in a [id number] fashion for closure at the end of the case. The balloon trocar was inserted into the abdomen and pneumoperitoneum was achieved. Under direct visualization of the laparoscope, a 5 mm trocar was placed in the suprapubic region and a 5 mm trocar was placed in the left lower quadrant. Appendix was located, [FINDINGS]. The base of the appendix was dissected around. Once at the base an Endo-RAVINDER 2.5 stapler was then fired across the base of the appendix. The mesoappendix was then divided. It was then placed in an Endobag and removed through the 12 mm trocar site. The abdomen was then irrigated and suctioned. No other pathology noted. The abdomen was then desufflated and the trocars were removed. The 0 Vicryl placed at the beginning of the case was then tied closing the 12 mm fascial defect. The skin was then closed using 4-0 Monocryl in a subcuticular fashion. The abdomen was then washed and dried and Skin Affix was placed over the incisions. The patient tolerated the procedure well without any complications and was taken to the recovery room in stable condition. Anesthesia Type GET Estimated Blood Loss Estimated blood loss (mL): less than 10ml Specimens/Packing Specimens Removed MARÍA ELENA Tamayo DO May 30, 2020 13:15
[2020-05-30] MEDS ORDERED: ACHYD1T PO (13:16)
--- NOTE | 2020-05-30 13:17 | Discharge Inst-Surgical ---
Discharge Inst-Surgical Depart Medication/Instructions New, Converted or Re-Newed RX: RX Given to Pt/Family Patient Instructions Follow up Appt: Make appointment for 1 week. [phone] Instructions: No lifting greater than 20 pounds. No strenuous activity. May shower in 24 hours, no tub bath or soaking. Use incentive spirometer at home as directed. No Smoking Skin/Wound Care: May remove bandages in am. You need to leave the Dermabond on incision it will fall off on it's own. Symptoms to Report: Appetite Changes, Extremity Discoloration, Numbness/Tingling, Swelling Increased, Bleeding Excessive, Eyesight Changes, Pain Increased, Urine Color Change, Constipation(Persistent), Fever over 101 degree F, Pain/Pressure in chest, Urinating Difficulty, Cough Up/Vomit Blood, Heart Beat Irreg/Pounding, Pain/Pressure in jaw, Cramps in feet or legs, Lightheadedness, Pain/Pressure in shoulder, Diarrhea(Persistent), Memory Changes Suddenly, Questions/Concerns, Weight gain consecutive days, Dizziness/Fainting, Nausea/Vomiting, Shortness of Breath, Weight gain over 2 pounds If questions or concerns contact your physician Or seek help at emergency department. Activity Activity as Tolerated: Yes Activity Instructions: Avoid Stress to Incision Driving Instructions: No Driving/Refer to Dr. Mead Discharge Diet: No Restrictions Diet After 24 Hours: Clear Liquid if Nauseous If Any Problems/Questions/Issu: Contact Your Physician, Go to Emergency Room Skin/Wound Care Infection Signs and Symptoms: Increased Redness, Foul Odor of Wound, Increased Drainage, Skin Itchy or Has a Rash, Increased Swelling, Temperature Above 101 F Wound Care Comment: heating pad to shoulder or neck tonight for pain Bathing Instructions: Shower Stitches/Tori/Dermabond Dis: Dermabond Ice Pack: Ice On and Off Site (at incisions as needed for pain) MARÍA ELENA HERNANDEZ DO May 30, 2020 13:17
--- NOTE | 2020-05-30 13:31 | Anesthesia-General Post-Op ---
General Patient Condition Mental Status/LOC: Same as Preop Cardiovascular: Satisfactory Nausea/Vomiting: Absent Respiratory: Satisfactory Pain: Controlled Complications: Absent Post Op Complications Complications None Follow Up Care/Instructions Patient Instructions None needed. Anesthesia/Patient Condition Patient Condition Patient is doing well, no complaints, stable vital signs, no apparent adverse anesthesia problems. No complications reported per nursing. LAMONT PIZANO CRNA May 30, 2020 13:31
[2020-05-30] MEDS ORDERED: ONDANSETRON 4 MG/2 ML (SDV) Z0FRAN IVP PRN (13:45)
[2020-05-30] MEDS ORDERED: morphine INJ 10 MG/ML 1ML (SYR OR VIAL) IVP ONE (13:45)
[2020-05-30] MEDS ORDERED: fentaNYL INJ 100 MCG/2 ML AMP IVP ONE (13:45)
== END 2020-05-30 15:50 | disposition home or self-care (01) ==
LOC: EDUNIT# 08:07 → ER FS 08:09 → SDC 11:14
PROVIDERS: ATTEND Surgery
DX: K35.30 Acute appendicitis with localized peritonitis, without perforation or gangrene (principal); F17.210 Nicotine dependence, cigarettes, uncomplicated; Z83.3 Family history of diabetes mellitus
CPT/HCPCS: 36415; 74177; 80053; 81000; 85007; 85027; 86141; 87081; 88304

== ENCOUNTER 2021-09-28 03:39 | Emergency (ER) | payer BC ==
[~2021-09-28] VITALS: Ht 172.7 cm; Wt 71.1 kg
[~2021-09-28 03:39] MED LIST: ACHYD1T PO
[2021-09-28 03:45] VITALS: BP 166/92
--- NOTE | 2021-09-28 04:04 | ED Psychosocial ---
General Stated Complaint: PT STATES HE'S ON METH, PARANOID W/DELUSIONS History of Present Illness Date Seen by Provider: Sep 28, 2021 Time Seen by Provider: 03:59 Initial Comments 41-year-old male presents because he is paranoid and feels unsafe. Patient admits to using meth around 10:30 PM. Patient reports he used meth for like 5 to 6 days and a row. Patient reports that he is an addict but comes in today because he "feels unsafe" patient is reports he is having issues with his but has no physical or medical complaints. Patient is not homicidal or suicidal. Patient reports that he does not having a "actual emergency" when I asked patient why he is here what we can do for him. He states that he was hoping he could "get cleaned up, maybe take a shower or something. Patient multiple times admitted to having problems with his due to him watching porn and his meth use. Allergies and Home Medications Allergies Coded Allergies: No Known Drug Allergies (Unverified , 03/05/19) Patient Home Medication List Home Medication List Reviewed: Yes Hydrocodone Bit/Acetaminophen (HYDROcodone/APAP 10/325 TABLET) 1 Ea Tab, 1 TAB PO Q6H Prescribed by: MARÍA ELENA HERNANDEZ on 05/30/20 1316 Review of Systems Constitutional: no symptoms reported EENTM: no symptoms reported Respiratory: no symptoms reported Cardiovascular: no symptoms reported Gastrointestinal: no symptoms reported Genitourinary: no symptoms reported Musculoskeletal: no symptoms reported Skin: no symptoms reported Psychiatric/Neurological: See HPI, Emotional Problems Past Owerbfl-Nrpomz-Wqvsfc Hx Seasonal Allergies Seasonal Allergies: No Past Medical History Surgeries: No Respiratory: No Cardiac: No Neurological: No Genitourinary: No Gastrointestinal: No Musculoskeletal: No Endocrine: No HEENT: No Cancer: No Psychosocial: No Integumentary: No Blood Disorders: No Family Medical History Diabetes Physical Exam Vital Signs - First Documented 09/28/21 03:45 Temp 36.3 Pulse 126 Resp 20 B/P (MAP) 166/92 (116) Pulse Ox 95 O2 Delivery Room Air Capillary Refill : Height, Weight, BMI Height: '" Weight: lbs. oz. kg; 27.68 BMI Method: General Appearance: other (Anxious) Neck: full range of motion, supple Respiratory: lungs clear, normal breath sounds Cardiovascular: normal peripheral pulses, regular rate, rhythm Gastrointestinal: non tender; No distended Extremities: normal range of motion Neurologic/Psychiatric: alert Appearance/Memory: disheveled Behavior/Eye Contact: increased rate of speech, compulsive Thoughts/Hallucinations: paranoid Skin: tattoos/piercings, other (Small abrasion abdominal wall) Suicide Risk Suicide Risk Suicide Risk Level / RN Screen: Low Low Suicide Risk Level []Suicidal Ideation WITHOUT method, intent, plan or behavior more than a month ago []]Modifiable risk factors and strong protective factors []No reported history of suicidal ideation or behavior []Patient reports/exhibits symptoms consistent with psychosis []Patient reports a plan that would be unrealistic/impossible to complete and intent []Suicide attempt prior to arrival (Indicates at LEAST Low Suicide Risk, consider other risk factors) Moderate Suicide Risk Level: []Suicidal ideation with method, WITHOUT plan, intent or behavior in the past month []Multiple risk factors and few protective factors []Patient reports intent to follow through on plan to end life if allowed to leave hospital, and has attempted to elope from the hospital High Suicide Risk Level: [] Suicidal ideation with intent or intent with a plan in the past month [] Patient has harmed self or attempted suicide while in the hospital [] Patient has hx of or current Command Auditory hallucinations to harm self or others that they follow without hesitation [] Patient refuses to disclose plan, and indicates intent to complete [] Patient reports plan that is possible to accomplish and/or has means to complete Risk factors supporting recommendation: [] Non-compliance with treatment (acute or chronic) [] Patient has access to or owns firearms and/or stockpiled medications [] Hx Impulsive behavior [] Pending incarceration or homelessness [] Sexual abuse [] Family history and/or exposure to suicide [] Adverse childhood experiences [] Exposure to violence or negative socio-political cultural, and economic forces [] Current or hx of substance use/abuse [] Chronic physical pain or other acute medical problem (AIDS, COPD, Cancer, etc) [] Perceived burden on family or others [] Patient has attempted to elope [] Unable to answer and/or unable to identify [] Refuses to agree to a safety plan Protective Factors supporting recommendation: [] Identifies reasons for living [] Future plans/goals [] Engaged in work or School [] Good family support network [] Good social support network [] Responsibility to family [] Belief that suicide is immoral, against their religion beliefs [] High spirituality and involvement in hinduism community [] Fear of or dying due to pain and suffering [] Established outpt psychiatric services [] Unable to answer and/or unable to identify Risk Assessment Tool Score: Low Progress/Results/Core Measures Results/Orders Vital Signs/I&O 09/28/21 03:45 Temp 36.3 Pulse 126 Resp 20 B/P (MAP) 166/92 (116) Pulse Ox 95 O2 Delivery Room Air Progress Progress Note : Progress Note Pd was called because patient stated he felt unsafe when he was at home. PD came home out and reported they had multiple encounters with him throughout the day. That everyone in his family and friends understand that he is high meth and that all reported that they were okay with him coming home and just going to bed and get some rest and sleep it off. Patient had no further medical needs. He was stable outside of his intoxication with methamphetamine. Patient was discharged home and they ensured that he was home safely. 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 Referrals: SURJIT ESPINOZA APRN (PCP) Primary Care Physician [facility]ARG[facility] (Family) Primary Care Physician Patient Instructions: Drug Abuse Treatment, Drug Abuse and Drug Addiction (DC) Add. Discharge Instructions: Please consider getting help for both your drug use and porn addiction. Multiple resources are available including [email or web address] JHONNY MANZANARES DO Sep 28, 2021 04:04
== END 2021-09-28 04:20 | disposition home or self-care (01) ==
LOC: EDUNIT# 03:39 → ER FS 03:41
DX: F15.980 Other stimulant use, unspecified with stimulant-induced anxiety disorder (principal); F52.8 Other sexual dysfunction not due to a substance or known physiological condition; Z28.310 Unvaccinated for COVID-19
CPT/HCPCS: 99281